=== PATIENT | female | born 1955 | race Caucasian/White ===

== ENCOUNTER → 2018-01-04 10:00 | Outpatient (CLI) | payer OTHER, SELFPAY ==
--- NOTE | 2018-01-04 10:04 | HPBI_ITS ---
MAMMOGRAPHY - BILATERAL SCREENING REASON FOR EXAM: Female, 62 years old. Routine annual screening examination. PERTINENT HISTORY: Non-contributory. TECHNIQUE: Digital bilateral breast elle (3D mammographic acquisition) in the CC and MLO projections. 2-D mediolateral oblique (MLO) and craniocaudad (CC) views of both breasts were obtained. CAD: Full Field Digital Mammography with Computer Added Detection was performed. COMPARISON: Comparison is made with prior abdomen examination dated May 10, 2017. FINDINGS: Breast Composition: The breasts are heterogeneously dense, which may obscure small masses. There are no dominant masses or suspicious calcifications. No other significant abnormalities are identified. There has been no significant change since the prior study. HPBI/SCREENING MAMM (CAD), BILAT IMPRESSION: Stable bilateral screening mammogram. Yearly follow-up mammogram recommended. (A) ASSESSMENT CATEGORY: BIRADS Category 1: Negative. A letter regarding these results will be sent to the patient by the facility within 30 days. Approximately 10% of breast cancers are not detected by mammography. A normal mammogram should not delay biopsy of a clinically suspicious abnormality. [id number] Electronically Signed: Louis Mena MD at 11:16 EST Tel [phone], Service support ,
== END ==
PROVIDERS: Family Provider Nurse Practitioner; PCP Nurse Practitioner; Visit Provider Nurse Practitioner Women's Health
DX: Z12.31 Encounter for screening mammogram for malignant neoplasm of breast (principal)
CPT/HCPCS: 77063; 77067

== ENCOUNTER → 2019-01-07 09:46 | Outpatient (CLI) | payer OTHER, SELFPAY ==
[2018-08-13 22:13] VITALS: BMI 24.2
--- NOTE | 2019-01-07 09:49 | BI_ITS ---
MAMMOGRAPHY - BILATERAL SCREENING REASON FOR EXAM: Female, 63 years old. Routine annual screening examination. PERTINENT HISTORY: Non-contributory. TECHNIQUE: Digital bilateral breast alberto (3D mammographic acquisition) in the CC and MLO projections. 2-D mediolateral oblique (MLO) and craniocaudad (CC) views of both breasts were obtained. CAD: Full Field Digital Mammography with Computer Added Detection was performed. COMPARISON: Comparison is made with prior study dated January 04, 2018. FINDINGS: Breast Composition: The breasts are heterogeneously dense, which may obscure small masses. There are no dominant masses or suspicious calcifications. No other significant abnormalities are identified. There has been no significant change since the prior study. BI/SCREEN MAMM (CAD) W/ALBERTO BILAT IMPRESSION: Stable bilateral screening mammogram. Yearly follow-up mammogram recommended. (A) ASSESSMENT CATEGORY: BIRADS Category 1: Negative. A letter regarding these results will be sent to the patient by the facility within 30 days. Approximately 10% of breast cancers are not detected by mammography. A normal mammogram should not delay biopsy of a clinically suspicious abnormality. [id number] Electronically Signed: Louis Mena, at 12:19 EDT , Service support ,
== END ==
PROVIDERS: Family Provider Nurse Practitioner; PCP Nurse Practitioner; Visit Provider Nurse Practitioner Women's Health
DX: Z12.31 Encounter for screening mammogram for malignant neoplasm of breast (principal)
CPT/HCPCS: 77063; 77067

== ENCOUNTER → 2019-08-21 12:47 | Outpatient (CLI) | payer OTHER, SELFPAY ==
[2019-08-21 09:55] VITALS: BMI 24.2
== END ==
PROVIDERS: Family Provider Nurse Practitioner; PCP Nurse Practitioner; Referring Provider Nurse Practitioner Women's Health; Visit Provider Nurse Practitioner Women's Health
DX: N76.0 Acute vaginitis (principal)
CPT/HCPCS: 87070; 87205

== ENCOUNTER → 2020-04-15 10:18 | Outpatient (CLI) | payer OTHER, SELFPAY ==
[2019-08-21 09:55] VITALS: BMI 24.2
[2020-04-15 09:59] VITALS: BMI 24.5
--- NOTE | 2020-04-15 10:19 | BI_ITS ---
MAMMOGRAPHY - BILATERAL SCREENING REASON FOR EXAM: Female, 64 years old. Routine annual screening examination. PERTINENT HISTORY: Non-contributory. TECHNIQUE: Digital bilateral breast alberto (3D mammographic acquisition) in the CC and MLO projections. 2-D mediolateral oblique (MLO) and craniocaudad (CC) views of both breasts were obtained. CAD: Full Field Digital Mammography with Computer Added Detection was performed. COMPARISON: Comparison is made with prior examination dated January 07, 2019 and January 04, 2018. FINDINGS: Breast Composition: The breasts are heterogeneously dense, which may obscure small masses. There are no dominant masses or suspicious calcifications. No other significant abnormalities are identified. There has been no significant change since the prior study. BI/SCREEN MAMM (CAD) W/ALBERTO BILAT IMPRESSION: Stable bilateral screening mammogram. Yearly follow-up mammogram recommended. (A) ASSESSMENT CATEGORY: BIRADS Category 1: Negative. A letter regarding these results will be sent to the patient by the facility within 30 days. Approximately 10% of breast cancers are not detected by mammography. A normal mammogram should not delay biopsy of a clinically suspicious abnormality. [id number] Electronically Signed: Louis Mena, at 11:20 EDT , Service support ,
== END ==
PROVIDERS: PCP Nurse Practitioner; Referring Provider Nurse Practitioner Women's Health; Visit Provider Nurse Practitioner Women's Health
DX: Z12.31 Encounter for screening mammogram for malignant neoplasm of breast (principal)
CPT/HCPCS: 77063; 77067

== ENCOUNTER 2020-04-19 20:58 | Emergency (ER) | payer OTHER, SELFPAY ==
[2020-04-15 09:59] VITALS: BMI 24.5
[2020-04-19 21:00] VITALS: BP 124/63; PULSE 84; RESP 16; TEMP 36.9; O2SAT 97; BMI 26.6
--- NOTE | 2020-04-19 21:13 | ED.VIS.GEN ---
History of Present Illness Chief Complaint: Nosebleed Informant: Patient Onset: Hours - 0.5 Context: Sudden Onset - spontaneous, no obvious trigger/cause. no trauma. no FB or finger in nose. Timing: Intermittent Quality: oozing Location: left naris only Current Severity: gone Maximum Severity: Mild Worsened by: nothing in particular Relieved by: nothing but tried nothing. did not hold pressure. Associated Symptoms: none. no sx of anemia, no pain, no swallowing blood. Narrative: Patient is healthy and takes no prescriptions or anticoagulants/antiplatelets [id number]. Spontaneous nosebleed tonight, she was scared because she did not know what to do, and admits that the bleeding was not severe, call 911 and brought to the ER, bleeding resolved. She usually has normal blood pressures, the last time she had it checked as an outpatient in an office it was 117 systolic, 145 today by EMS. 124/63 now. Past Medical History - Allergies and Home Meds Allergies/Adverse Reactions: Allergies codeine Allergy (Mild, Verified 04/19/20 20:59) Other Primary Care Physician: Mervat Conway NP-C [Primary Care Provider] - 1-2 Weeks Past Medical History: None Lives: Spouse/ Significant Other Smoking Status: Never smoker Review of Systems General: Denies: Chills, Fever, Sweats Eyes: Denies: Visual changes - bilaterally, Diplopia ENT: Reports: Rhinorrhea. Denies: Bilateral ear pain, Sore throat Cardiovascular: Denies: Chest pain, Palpitations Respiratory: Denies: Dyspnea, Cough, Dyspnea on exertion Gastrointestinal: Denies: Abdominal pain, Nausea, Vomiting, Diarrhea, Melena, Hematochezia Musculoskeletal: Denies: Back pain, Extremity Pain Skin: Denies: Rash, Wounds Neurological: Denies: Headache, Weakness, Numbness Physical Exam Vital Signs/Narrative: Vital Signs Temp Pulse Resp BP Pulse Ox 04/19/20 21:00 98.4 F 84 16 124/63 H 97 Inital Vital Signs reviewed: Yes General: Well nourished, Well developed, No Acute Distress - Well-appearing, conversive in full sentences Head: Normocephalic, Atraumatic Eyes: Perrl, EOMI ENT: Moist mucous membranes, No rhinorrhea - No active bleeding. One small area at the anterior aspect of the septum on the left side within Brennen box plexus with a very small clot on it, and evidence of recent bleeding. Nothing active. No septal perforation or hematoma or deviation. Right side is clear., - - Posterior oropharynx clear of any blood. Neck: Supple, Nontender, No lymphadenopathy Cardiovascular: Regular rate, Regular rhythm, No murmurs Respiratory: No distress, CTA bilaterally, Chest nontender Skin: Normal color, No rash Neurological: Alert, Oriented x3, Cranial nerves II-XII grossly intact, Normal Strength, Normal Sensation, Normal Gait Psychological: Normal affect, Normal Mood Diagnostic/Tx/Re-eval - Medical Decision Making A nasal pledget with Carmen mix was placed in her nose for half an hour, followed by silver nitrate cauterization of the affected area without complication. No recurrent bleeding and tolerated well. Advised to follow-up with her doctor, etiology could have simply been spontaneous due to dry air in the home from running air conditioning frequently given hot and humid ambient temperatures. No excoriations were seen. Procedures Procedure(s): Epistaxis care --left nasal septum area of bleeding was cauterized initially with silver nitrate, bleeding immediately started recurring. I placed another medication-soaked pledget against it for 5 minutes and rechecked it, the bleeding had stopped, I recauterized lightly, which was successful, without recurrent bleeding. ED Disposition - Plan for ED Patient: Disposition: Home or Assisted Living Diagnosis: Acute anterior epistaxis Instructions: ED Epistaxis Adult Referrals: Eric Peterson MD [STAFF PHYSICIAN] - As Needed
[2020-04-19] MEDS: Silver Nitrate (BKC) 1 EACH TOPICAL (21:23)
[2020-04-19] MEDS: Mixture 30 ML Bottle 5 ML TOPICAL (21:24)
[2020-04-19 22:53] VITALS: BP 121/60; PULSE 78; RESP 18; O2SAT 98
== END 2020-04-19 22:53 | disposition home or self-care (01) ==
LOC: ED 21:32
PROVIDERS: Emergency Provider Emergency Medicine; PCP Nurse Practitioner
DX: R04.0 Epistaxis (principal)
CPT/HCPCS: 30901; 99284

== ENCOUNTER 2025-03-18 22:25 | Outpatient (CLI) | payer MEDICARE, OTHER, SELFPAY ==
[2025-03-18 22:33] LABS: Absolute Lymphocyte Count 1.62 X10^3/uL (0.83-4.51); Basophil# 0.06 X10^3/uL; Basophil% 0.4 % (0-1); Eosinophil# 0.08 X10^3/uL; Eosinophils% 0.5 % (0-5); Hemoglobin 14.9 g/dL (12.0-15.0); Lymphocyte # 1.62 X10^3/ul (0.83-4.51); Lymphocyte % 10.1 % (19-41); Mean Corp Hgb Conc 33.9 g/dL (32-36); Mean Corpuscular Hgb 32.3 pg (27.0-32.0); Mean Corpuscular Volume 95.4 fL (81-99); Mean Platelet Vol. 11.3 fl (6.2-12.0); Monocyte# 1.18 X10^3/uL; Monocyte% 7.4 % (0-10); NRBC Flagged by Analyzer 0 % (0-5); Neutrophil # 12.99 X10^3/uL (2.7-7.7); Neutrophil % 81.3 % (47-70); Platelet Count 211 K/mm3 (150-450); RBC Distribution Width SD 49.4 fl (35.1-43.9); Red Blood Count 4.61 M/mm3 (4.2-5.4)
[2025-03-18 23:19] LABS: ALB/GLOB Ratio 1.4 RATIO (0.9-2.4); AST(SGOT) 37 U/L (<=31); Alanine Aminotransfer ALT/SGPT 32 U/L (<=34); Albumin, Serum 4.3 g/dL (3.4-4.8); Alkaline Phosphatase 97 U/L (35-104); Anion Gap 13 (5-15); BUN 21 mg/dL (4-19); BUN/Creat Ratio 28.8 RATIO (10-20); Calcium,Total 9.6 mg/dL (7.6-11.0); Carbon Dioxide 24.4 mmol/L (21.0-32.0); Chloride 100 mmol/L (98-108); Cholesterol 177 mg/dL (<=200); Creatinine, Serum 0.74 mg/dL (0.70-1.20); EST Glomerular Filtration Rate 89 (>60); Glucose 106 mg/dL (70-99); High Density Lipoprotein 66 mg/dL; Low Density Lipoprotein Calc. 97 mg/dL; Magnesium 2.1 mg/dL (1.5-2.2); Protein, Total 7.3 g/dL (5.9-8.4); Sodium Level 137 mmol/L (133-145); Total Bilirubin 0.71 mg/dL (0.00-1.30); Triglycerides 69 mg/dL; Very Low Density Lipoprotein 14 mg/dL (5-40); cholesterol:hdl ratio screen 2.67
[2025-03-20 12:08] LABS: Anti-Centromere B Ab <0.2 AI (0.0-0.9); Anti-Chromatin <0.2 AI (0.0-0.9); Anti-Jo <0.2 AI (0.0-0.9); Anti-Scleroderma-70 AB <0.2 AI (0.0-0.9); Anti-dsDNA Ab 2 IU/mL (0-9); RNP Ab 0.2 AI (0.0-0.9); SJOGREN'S Anti-SS-A test < 0.2 AI (0.0-0.9); SJOGREN'S Anti-SS-B test < 0.2 AI (0.0-0.9); Smith Ab <0.2 AI (0.0-0.9)
== END 2025-03-18 23:59 | disposition home or self-care (01) ==
LOC: OLS.AHF 22:26
PROVIDERS: PCP Nurse Practitioner; Visit Provider Nurse Practitioner
DX: J02.9 Acute pharyngitis, unspecified (principal); M25.50 Pain in unspecified joint; M54.50 Low back pain, unspecified; G89.29 Other chronic pain; R53.83 Other fatigue; R42 Dizziness and giddiness; E78.00 Pure hypercholesterolemia, unspecified
CPT/HCPCS: 80053; 80061; 83735; 84443; 85025; 86225; 86235